=== PATIENT | male | born 2000 | race Asian ===

== ENCOUNTER 2023-11-14 13:10 | Emergency (ER) | payer OTHER, SELFPAY ==
[2023-11-14 13:16] VITALS: BP 109/74
[2023-11-14 13:22] LABS: Glucose - Point of Care 84 mg/dl (70-99)
[2023-11-14 13:27] VITALS: BMI 18.1
[2023-11-14 13:52] LABS: % Basophils 0.9 % (0-2); % Eosinophils 0.9 % (0-6); % Immature Granulocytes 0.5 % (0-0.5); % Lymphocytes 44.6 % (20.5-51.1); % Monocytes 8.1 % (1.7-9.3); Absolute Basophils 0.1 10^3/uL (0-0.2); Absolute Eosinophils 0.1 10^3/uL (0-0.7); Absolute Monocytes 0.5 10^3/uL (0.1-0.6); Hematocrit 39.8 % (39.0-52.0); Hemoglobin 14.3 g/dL (13.0-18.0); Mean Corp Hgb Conc. 35.9 g/dL (33.0-37.0); Mean Corpuscular Hgb 31.9 pg (27.0-31.0); Mean Corpuscular Volume 88.8 fL (80.0-94.0); Mean Platelet Volume 9.6 fL (7.4-10.4); Nucleated Red Blood Cells % 0 % (-); Platelet Count 209 10^3/uL (130-400); Red Blood Cell Count 4.48 10^6/uL (4.70-6.10); Red Cell Dist. Width 11.7 % (11.5-14.5); White Blood Cell Count 6.6 10^3/uL (4.8-10.8)
[2023-11-14 14:08] LABS: Blood Urea Nitrogen 16 mg/dl (9-20); Calcium 9.5 mg/dl (8.4-10.2); Carbon Dioxide 20 mmol/L (22-30); Chloride 103 mmol/L (98-107); Estimated Creatinine Clearance > 125 ml/min; Glucose 124 mg/dl (70-99); Sodium 135 mmol/L (135-145); eGFR > 60.00
[2023-11-14 14:33] LABS: Erythrocyte Sed Rate 2 mm/hour (0-20)
[2023-11-14 14:39] VITALS: BP 106/66
--- NOTE | 2023-11-14 15:15 | EDRN ---
Pt going to [facility] at this time.
[2023-11-14 15:43] VITALS: BP 107/66
[2023-11-14 15:47] LABS: Prolactin 116.2 ng/ml (3.7-17.9)
--- NOTE | 2023-11-14 15:47 | EDRN ---
Pt took off IV covering/protective so arm wrapped in kerlix to protect pt from pulling out his IV.
--- NOTE | 2023-11-14 16:00 | EDRN ---
Lien VENTURA was in to update pt's parents.
[2023-11-14 16:14] LABS: ALT (SGPT) 18 U/L (0-50); AST (SGOT) 26 U/L (17-59); Albumin 4.9 g/dl (3.5-5.0); Alkaline Phosphatase 66 U/L (38-126); Blood Urea Nitrogen 17 mg/dl (9-20); Calcium 9.5 mg/dl (8.4-10.2); Carbon Dioxide 24 mmol/L (22-30); Chloride 104 mmol/L (98-107); Estimated Creatinine Clearance > 125 ml/min; Glucose 109 mg/dl (70-99); Sodium 134 mmol/L (135-145); Total Bilirubin 0.6 mg/dl (0.2-1.3); Total Protein 7.4 g/dl (6.3-8.2); eGFR > 60.00
[2023-11-14 16:21] LABS: Vitamin B12 685 pg/ml (239-931)
--- NOTE | 2023-11-14 16:54 | ED.GENMED ---
History of Present Illness
General
Chief Complaint: Seizure
Source: family
Exam Limitations: non verbal-adult
Time Seen by Provider: 11/14/23 13:27
Nursing documentation reviewed up to this point in time: agreed with
Travel History
Have you had any contact with someone who has COVID-19?: No
Do you have any symptoms of coronavirus? Fever > 100 degrees, chills, cough, shortness of breath, sore throat, loss of taste or smell, muscle aches, or headache?: No
History of Present Illness
History of Present Illness:
pt is a 23 y/o M with h/o dev delay/autism, nonverbal
here via EMS
after pt was witnessed to have event toay where he had his arms bent and was shaking and saying 'oh oh oh' and foaming at the mouth. Following that he became diaphoretic and felt cool to the touch. Patient took his temperature with a temporal
scanner which was 36.5. Patient probably shook slightly for about 1 minute before becoming sleepy. He was postictal appearance to EMS, normal blood sugar, was mildly tachycardic in the 1 teens until arrival. He is now awake and alert and at
baseline. He is nonverbal, will follow some commands per parents sometimes
This could be his first ever seizure episode. He has never passed out. He has no known congenital anomalies/structural abnormalities in his brain. Patient did vomit when he arrived here but has not vomited since.
Past History
Past History
ED Past Medical History: Other ( developmental delay, autism)
Review of Systems
Review of Systems
Allergies reviewed?: Yes
Unable to obtain full review of systems at this time due to: non-verbal
All Other Systems: Not applicable
Phy Exam
Physical Exam
Physical Exam:
GENERAL: nontoxic, moving around in the stretcher, not communicative
moving all extremities
HEENT: no signs of head truama elmer supple, nnot opening mouth for me, but i was able to get a quick look and i did not see a tongue laceration
RESP: Unlabored respirations, no accessory muscle use. Breath sounds clear bilaterally
CARDIOVASCULAR: Regular rate, no murmurs, equal pulses
GASTROINTESTINAL: Soft, nontender, nondistended, normal bowel sounds
SKIN: No rash, no petechiae, no unusual bruising
NEURO: moving all extremities; not following commands for me but this is baseline per familry
Course
Orders/Labs/Results
Orders:
Orders
11/14/23 13:31
Cardiac Monitoring- Treatment ONCE
IV Insert/Care/Rem.- Treatment PRN
11/14/23 13:37
Basic Metabolic Panel Urgent
Complete Blood Count/With Diff Urgent
Erythrocyte Sed Rate Urgent
Comment: ADD ON
Prolactin Urgent
Vitamin B12 Urgent
Comment: ADD ON
11/14/23 13:55
Electrocardiogram (*1) Urgent
Reason for Study: Other
Other Reason for Exam: ams
EKG- Treatment ONCE
11/14/23 15:37
Comprehensive Metabolic Panel Urgent
11/14/23 16:56
Levetiracetam [Keppra] 500 mg PO NOW STA
Levetiracetam [Keppra] 500 mg PO NOW STA
Abnormal Lab Results
11/14/23 11/14/23
13:37 15:37
RBC 4.48 L 10^6/uL
(4.70-6.10)
MCH 31.9 H pg
(27.0-31.0)
Sodium 134 L mmol/L
(135-145)
Carbon Dioxide 20 L mmol/L
(22-30)
Creatinine 0.6 L mg/dL 0.6 L mg/dL
(0.7-1.3) (0.7-1.3)
Glucose 124 H mg/dl 109 H mg/dl
(70-99) (70-99)
Prolactin 116.2 H ng/ml
(3.7-17.9)
11/14/23 13:37
11/14/23 15:37
Vital Signs
Initial and Last Documented VS:
Initial Vital Signs
Temp Pulse Resp BP Pulse Ox
97.6 F 97 18 109/74 97
11/14/23 13:16 11/14/23 13:16 11/14/23 13:16 11/14/23 13:16 11/14/23 13:16
Last Documented Vital Signs
Temp Pulse Resp BP Pulse Ox
97.6 F 90 24 107/66 96
11/14/23 13:16 11/14/23 17:00 11/14/23 17:00 11/14/23 15:43 11/14/23 17:00
MDM/Problems Addressed
Differential Diagnosis Includes:
seizure, syncope
MDM/Problems Addressed:
23-year-old developmentally delay/autism and nonverbal witnessed to have an event that look like a seizure by parents, lasting about a minute, patient did seem postictal for paramedics but was not incontinent and had no obvious tongue laceration,
here was initially a little bit somnolent but has returned to his baseline fairly quickly. He did vomit on arrival but has not had any vomiting since. He had no provoked cause for the seizure,. His blood work was reassuring, discussed CT imaging
likely not to be high yield and mom declined. I discussed this case with neurology attending Dr. Xiong who recommended a prolactin level and if elevated could suggest that the patient did have a seizure. This was elevated. His sed rate was
normal. He recommended 500 of Keppra twice daily and outpatient MRI/neurology follow-up. Mom was told about this information. We did use the language line for some of the encounter however she does speak Mexican and she is medically inclined,
works for [employer] and seems to have a good understanding about what to do for follow-up. Return precautions given
*Critical Care Note
Total Time (30-74mins, 75-104mins- exclusive of procedures): Not Applicable
ED Attending Note
-
Portions of this chart may have been created with voice recognition software.� Occasional wrong word or��sound alike� substitutions may have occurred due to the inherent limitations of voice recognition software.
Discharge Plan
Departure
Patient Disposition: Home (Routine Discharge)
Date of Disposition: 11/14/23
Time of Disposition: 17:00
Patient with high blood pressure during this ER visit?: No
Covid-19: Not Applicable
Discharge Problem:
Observed seizure-like activity
Instructions: Seizures, Adult (DC)
Prescriptions:
New
levetiracetam [Keppra] 500 mg tablet
500 mg PO BID 14 Days Qty: 28 0RF
Referrals:
Larry Xiong MD [Active] - Follow up in 1 week (neuro)
Malini Mustafa MD [Family Provider] -
Activity Restrictions/Additional Instructions:
Chidi sounds to have had a seizure today. He is going to need an outpatient MRI and neurology follow-up. You should call on Thursday and try to get an appointment. Tell them that you are in the emergency department. In the meantime he should see
his family doctor. They can continue treatment and tried to arrange for follow-up. Watch for any repeated seizure activity and bring him back immediately or call 911. For now given Keppra 500 mg twice a day.
Return for any seizure, worsening vomiting, confusion, change in mental status, or any concerns
Interventions
Interventions:
*Risk Screen - Suicide Last Done: 11/14/23 13:28
*General Assessment Last Done: 11/14/23 13:28
*Neglect/Abuse Screening Last Done: 11/14/23 13:28
ED- Fall Risk Assessment Last Done: 11/14/23 13:28
*ED COVID-19 Vaccine History Last Done: 11/14/23 13:28
*Nursing Disposition Last Done: 11/14/23 17:30
ED- Cardiac Assessment Last Done: 11/14/23 13:35
ED- Neurological Assessment Last Done: 11/14/23 13:35
ED- Pulmonary Assessment Last Done: 11/14/23 13:45
Discharge Date and Time
Discharge Date/Time: 11/14/23 17:30
Print Language: OCCIT[place]
[2023-11-14] MEDS: KEPPRA 500 MG PO (17:05)
--- NOTE | 2023-11-14 17:10 | EDRN ---
Pt took pill whole in apple sauce at this time.
== END 2023-11-14 17:30 | disposition home or self-care (01) ==
LOC: EMR 13:10
PROVIDERS: Physician Assistant; EMERGENCY PHYSICIAN Emergency Medicine; FAMILY PHYSICIAN Internal Medicine
DX: R56.9 Unspecified convulsions (principal); R11.10 Vomiting, unspecified; R00.0 Tachycardia, unspecified; R25.1 Tremor, unspecified; F84.0 Autistic disorder
CPT/HCPCS: 99284; 80048; 80053; 82607; 82962; 84146; 85025; 85652; 93005

== ENCOUNTER 2024-02-19 08:53 | Emergency (ER) | payer OTHER, SELFPAY ==
[2024-02-19 08:58] VITALS: BP 103/63
--- NOTE | 2024-02-19 09:19 | ED.SKININJ ---
HPI-Injury
General
Chief Complaint: Skin Problem
Source: family (father) and home health aide caregiver
Exam Limitations: non verbal-adult
Time Seen by Provider: 02/19/24 09:04
Nursing documentation reviewed up to this point in time: agreed with
History of Present Illness-Injury
Initial Injury comments:
23 yo developmentally delayed male with numerous scars from picking on right forearm and hand, one on left hand dorsum, superficial vertical scratch kerr on both lower legs, dad is concerned for infection as one of the scabs fell off today and the
underlying skin is red. Denies fever, vomiting. Has appointment with the Clerical Support Specialist next month.
Past History
Past History
ED Past Medical History: Other ( developmental delay, autism)
ED Past Surgical History: Other (hernia)
Social History
Tobacco: Non-smoker
Alcohol: None
Drug: None
Personal: Single
Living: with family
Employment: Disabled
Review of Systems
Review of Systems
Allergies reviewed?: Yes
All Other Systems: ROS reviewed and negative except as documented in HPI and ROS
Constitutional: Denies fever
Respiratory: Denies cough
ABD/GI: Denies vomiting or diarrhea
Skin: Reports other (numerous scars mainly on right forearm, few on hands, scratch kerr both lower legs)
Neurological: Reports other (Non verbal)
Phy Exam
Physical Exam
Physical Exam:
GENERAL: No acute distress. A&Ox3.
CONSTITUTIONAL: Afebrile.
EYES: clear, conjunctivae normal
RESPIRATORY: Regular respirations, nonlabored, lungs clear.
CARDIOVASCULAR: Regular rate and rhythm, no murmurs, no rubs.
GI: Soft, nontender
MUSCULOSKELETAL: Moves with ease. Well perfused.
SKIN: Warm, dry, R forearm and R hand dorsum with numerous dark pink raised dry scars. Few similar areas L hand dorsum. Both lower legs w superficial vertical scratch kerr. All surrounding skin is normal. No drainage. No lymphangitis, no swelling.
PSYCH: Developmentally delayed, non verbal.
NEUROLOGIC: Awake, alert. No focal neurological deficits
Course
Vital Signs
Initial and Last Documented VS:
Initial Vital Signs
Temp Pulse Resp BP Pulse Ox
98.3 F 70 18 103/63 100
02/19/24 08:58 02/19/24 08:58 02/19/24 08:58 02/19/24 08:58 02/19/24 08:58
Last Documented Vital Signs
Temp Pulse Resp BP Pulse Ox
98.3 F 70 18 103/63 100
02/19/24 08:58 02/19/24 08:58 02/19/24 08:58 02/19/24 08:58 02/19/24 08:58
MDM/Problems Addressed
Differential Diagnosis Includes:
Picking scars, scratch kerr, cellulitis
MDM/Problems Addressed:
23 yo developmentally delayed male with numerous scars from picking on right forearm and hand, one on left hand dorsum, superficial vertical scratch kerr on both lower legs, dad is concerned for infection as one of the scabs fell off today and the
underlying skin is red. Denies fever, vomiting. Has appointment with the Clerical Support Specialist next month.
Afebrile, NAD
Exam of right forearm and and dorsum of hand and left hand dorsum consistent with fibrotic scars, no sign of infection/cellulitis. Lower legs with superficial scratches, no sign of infection.
Nothing more to do at this point. 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
Dad has made appointment with Dermatology for next month.
*Critical Care Note
Total Time (30-74mins, 75-104mins- exclusive of procedures): Not Applicable
ED Attending Note
-
Portions of this chart may have been created with voice recognition software.� Occasional wrong word or��sound alike� substitutions may have occurred due to the inherent limitations of voice recognition software.
Discharge Plan
Departure
Patient Disposition: Home (Routine Discharge)
Date of Disposition: 02/19/24
Time of Disposition: 09:18
Patient with high blood pressure during this ER visit?: No
Condition: Good
Discharge Problem:
Scar conditions/skin fibrosis
Instructions: Scars and How to Care for Them
Prescriptions:
No Action
levetiracetam [Keppra] 500 mg tablet
500 mg PO BID 14 Days Qty: 28 0RF
Referrals:
Your, Clerical Support Specialist [Other] - Keep scheduled appt
Activity Restrictions/Additional Instructions:
You may try Zyrtec or Claritin to see if it helps with the itching and let the Clerical Support Specialist know whether or not it helped.
The lesions are not infected, they are simply scarred dark pink.
Keep your appointment with the Clerical Support Specialist.
Covering the arm may help.
Interventions
Interventions:
*Risk Screen - Suicide Last Done: 02/19/24 08:58
*General Assessment Last Done: 02/19/24 08:58
*Neglect/Abuse Screening Last Done: 02/19/24 08:58
*Nursing Disposition Last Done: 02/19/24 09:32
ED-Skin Assessment Last Done: 02/19/24 09:05
Discharge Date and Time
Discharge Date/Time: 02/19/24 09:33
Print Language: CITIZEN OF [place]
== END 2024-02-19 09:33 | disposition home or self-care (01) ==
LOC: EMR 08:53
PROVIDERS: EMERGENCY PHYSICIAN Student in an Organized Health Care Education/Training Program; FAMILY PHYSICIAN Internal Medicine
DX: L90.5 Scar conditions and fibrosis of skin (principal); F84.0 Autistic disorder
CPT/HCPCS: 99282

== ENCOUNTER → 2024-03-04 07:35 | Outpatient (REF) | payer OTHER, SELFPAY | LOC: EEG 07:35 | PROVIDERS: ATTENDING PHYSICIAN Specialist; FAMILY PHYSICIAN Internal Medicine | DX: R56.9 Unspecified convulsions (principal) | CPT/HCPCS: 95816 ==

== ENCOUNTER → 2024-03-23 15:44 | Outpatient (REF) | payer OTHER, SELFPAY | LOC: RAD 15:44 | PROVIDERS: ATTENDING PHYSICIAN Specialist | DX: R56.9 Unspecified convulsions (principal) | CPT/HCPCS: 70450 ==

== ENCOUNTER 2024-05-31 12:32 | Emergency (ER) | payer OTHER, SELFPAY ==
[2024-05-31 12:36] VITALS: BP 88/77
[2024-05-31 13:00] VITALS: BP 89/61
--- NOTE | 2024-05-31 13:17 | ED.GENMED ---
History of Present Illness
<FARIHA Alberts Last Filed: 05/31/24 18:37>
General
Chief Complaint: Seizure
Source: patient
Exam Limitations: none
Time Seen by Provider: 05/31/24 13:14
Nursing documentation reviewed up to this point in time: agreed with
History of Present Illness
History of Present Illness:
23-year-old male with past medical history of developmental delays, autism, seizure disorder presents emergency department today with concerns of a seizure. School staff reports that patient had an episode where he closed his eyes, his eyes
twitched, he became tense, started to slump over. He started to fall towards the ground but his teacher caught him before he hit his head. He did not injure his neck. Patient was given 5 mg of Versed intranasally by school nursing staff. He is
nonverbal and as such his history is limited. Mom does note that he sees Dr. Maria Elena Rees as his neurologist and takes keppra 500 po BID. his first seizure was a few months ago. Mom denies any infectious symptoms recently such as fevers or chills,
cough. Patient does have a iPad to communicate, however when asked if he has any headache, burning with urination, or any other symptoms, he replies on his ipad 'happy.' Mom does note that patient was up late and did not get much sleep the past 2
nights due to playing video games.
Past History
<FARIHA Alberts Last Filed: 05/31/24 18:37>
Past History
ED Past Medical History: Other ( developmental delay, autism)
ED Past Surgical History: Other (hernia)
Social History
Tobacco: Non-smoker
Alcohol: None
Drug: None
Personal: Single
Living: with family
Employment: Disabled
Review of Systems
<FARIHA Alberts Last Filed: 05/31/24 18:37>
Review of Systems
All Other Systems: ROS reviewed and negative except as documented in HPI and ROS
Phy Exam
<Marjorie Foster PA-C - Last Filed: 05/31/24 18:37>
Physical Exam
Physical Exam:
General: Patient is well appearing and in no acute distress; non-toxic
Skin: Warm and dry, no rashes or lesions
Head: Normocephalic, atraumatic
Eyes: Sclera non-icteric. EOMs intact. PERRLA.
Mouth: No intraoral lesions, no tongue laceration
Cardiac: Regular rate and rhythm, no murmurs
Pulm: Normal respiratory effort, no wheezes, rales, rhonchi
Musculoskeletal: No apparent tenderness to palpation of the cervical spine
Neuro: CN II-XII intact, no focal neurologic deficits.
Psychiatric: Appropriate mood and affect.
Course
<Marjorie Foster PA-C - Last Filed: 05/31/24 18:37>
Orders/Labs/Results
Orders:
Orders
05/31/24 13:31
Electrocardiogram (*1) Urgent
Reason for Study: Vertigo / Dizzy
EKG- Treatment ONCE
05/31/24 13:38
Complete Blood Count/With Diff Urgent
Comprehensive Metabolic Panel Urgent
Keppra (Levetiracetam) [S] Urgent
CR Chest - 2 Views Urgent
Comment:
Reason For Exam: cough
05/31/24 13:58
Urinalysis Reflex To Culture Urgent
Date Specimen was Collected: 05/31/24
Time Specimen was Collected: 13:57
Abnormal Lab Results
05/31/24
13:38
RBC 4.33 L 10^6/uL
(4.70-6.10)
Creatinine 0.6 L mg/dL
(0.7-1.3)
Glucose 130 H mg/dl
(70-99)
05/31/24 13:38
05/31/24 13:38
Vital Signs
Initial and Last Documented VS:
Initial Vital Signs
Pulse Resp Pulse Ox
76 23 98
05/31/24 12:35 05/31/24 12:35 05/31/24 12:35
Last Documented Vital Signs
Temp Pulse Resp BP Pulse Ox
98 F 93 18 98/71 97
05/31/24 12:36 05/31/24 15:45 05/31/24 14:00 05/31/24 14:20 05/31/24 12:36
<Mel Cavazos MD - Last Filed: 05/31/24 14:07>
Orders/Labs/Results
Orders:
Orders
05/31/24 13:31
Electrocardiogram (*1) Urgent
Reason for Study: Vertigo / Dizzy
EKG- Treatment ONCE
05/31/24 13:38
Complete Blood Count/With Diff Urgent
Comprehensive Metabolic Panel Urgent
Keppra (Levetiracetam) [S] Urgent
CR Chest - 2 Views Urgent
Comment:
Reason For Exam: cough
05/31/24 13:58
Urinalysis Reflex To Culture Urgent
Date Specimen was Collected: 05/31/24
Time Specimen was Collected: 13:57
Abnormal Lab Results
05/31/24
13:38
RBC 4.33 L 10^6/uL
(4.70-6.10)
Creatinine 0.6 L mg/dL
(0.7-1.3)
Glucose 130 H mg/dl
(70-99)
05/31/24 13:38
05/31/24 13:38
Vital Signs
Initial and Last Documented VS:
Initial Vital Signs
Pulse Resp Pulse Ox
76 23 98
05/31/24 12:35 05/31/24 12:35 05/31/24 12:35
Last Documented Vital Signs
Temp Pulse Resp BP Pulse Ox
98 F 93 18 98/71 97
05/31/24 12:36 05/31/24 15:45 05/31/24 14:00 05/31/24 14:20 05/31/24 12:36
<Marjorie Foster PA-C - Last Filed: 05/31/24 18:37>
MDM/Problems Addressed
Differential Diagnosis Includes:
ddx include breakthrough seizure, cardiogenic syncope, vasovagal syncope
MDM/Problems Addressed:
23-year-old male with past medical history of developmental delays, autism, seizure disorder presents emergency department today with concerns of a seizure. School staff reports that patient had an episode where he closed his eyes, his eyes
twitched, he became tense, started to slump over. History consistent with breakthrough seizure. On physical exam, patient is well appearing, he has no signs of head or neck trauma. He is in no acute distress. He is no evidence of tongue
lacerations. His CBC and CMP are unremarkable. His urinalysis was negative for infection, his chest x-ray showed no evidence of pneumonia. Did send off for Keppra level, pending. Was able to get into contact with Dr. Maria Elena Rees from [place] in
[facility] who recommends increasing patient's dose of Keppra 750 mg twice a day. Discussed this with patient's family. They are okay with plan. Dr. Rees did say that she will get patient in to be seen sooner than later for follow-up. They will
call patient to schedule appointment. Patient stable for discharge.
Chronic conditions affecting care:
Developmental delay, seizure disorder
<Marjorie Foster PA-C - Last Filed: 05/31/24 18:37>
*Pulse Oximetry
Patient hypoxic: no
*Critical Care Note
Total Time (30-74mins, 75-104mins- exclusive of procedures): Not Applicable
Data Reviewed
Review of Other/Old Records Reveals: Records (Reviewed ER physician documentation from 02/19/2024, patient seen for scars from skin picking, reviewed ER physician documentation from 11/14/2023, patient seen for seizure-like activity) and Other (Did
speak to mom who reports that patient has had normal EEG and CTscan of the head as part of his seizure work)
<Marjorie Foster PA-C - Last Filed: 05/31/24 18:37>
Patient Management
Escalation/DeEscalation of care consider admission/obs:
Admit not indicated, patient stable for discharge, EKG demonstrates nonspecific T wave abnormality however unchanged compared to previous EKG.
ED Attending Note
<Marjorie Foster PA-C - Last Filed: 05/31/24 18:37>
-
Portions of this chart may have been created with voice recognition software.� Occasional wrong word or��sound alike� substitutions may have occurred due to the inherent limitations of voice recognition software.
<Mel Cavazos MD - Last Filed: 05/31/24 14:07>
ED Attending Note
Patient seen and examined by attending physician: Yes
I performed the substantive portion of visit, reviewed & personally made and approve the management plan that is documented in note by myself or GAVI.: Yes
ED Attending Note:
I have seen and evaluated the patient with a [id number] encounter. I have spoken to the [PA] and involved in the medical history, the physical exam, medical decision making.
Evaluation and management service: agree unless noted differently below.
Results interpretation: agree unless noted differently below.
Patient is a 23-year-old man with history of autism and seizures presenting to the emergency department with a seizure. Patient's mother is at bedside provides all the history. He was diagnosed with seizures earlier this year and is on Keppra 500
mg twice daily. He has had a total of 4 seizures including the one today. Normally they are generalized tonic-clonic. Today he was at school when he started blinking abnormally and then had tonic seizure that lasted a few minutes. He was given 5
mg Versed intranasally. This did stop the seizure. He was slightly confused afterwards. Patient's mother is at bedside who states that he is back to his normal. She does note that for the past few days has only been sleeping 3 to 4 hours and has
been staying up all night playing games on his computer. He is also been having decreased p.o. for the past few days. His seizures did notice that he was less active today in school. However this morning he did wake up with his normal activity
level and mother did not notice anything abnormal. He is compliant with his medications. No fevers or chills. No URI symptoms. No recent trauma. No nausea vomiting or diarrhea. On exam patient is resting comfortably. He is nonverbal but
happily playing with the remote. His abdomen is benign. No obvious rashes. He is moving all extremities.
Differential consists of breakthrough seizure versus metabolic derangement versus infection though less likely. The stress certainly could be secondary to his sleep changes. Will check blood work urine EKG. Will discuss with his neurologist to
see if we should make any adjustments to his Keppra. Will also check Keppra level. Anticipate discharge if patient continues to remain at his baseline without any further evidence of seizures.
Discharge Plan
Departure
Patient Disposition: Home (Routine Discharge)
Date of Disposition: 05/31/24
Time of Disposition: 15:58
Patient with high blood pressure during this ER visit?: Yes
Condition: Good
Discharge Problem:
Seizure
Instructions: Seizures, Adult (DC), BLOOD PRESSURE
Prescriptions:
New
levetiracetam [Keppra] 750 mg tablet
750 mg PO BID Qty: 30 0RF
No Action
levetiracetam [Keppra] 500 mg tablet
500 mg PO BID 14 Days Qty: 28 0RF
Referrals:
Malini Mustafa MD [Family Provider] -
Activity Restrictions/Additional Instructions:
You should stop taking the 500 mg of Keppra. Please start taking 750 mg by mouth twice daily. You should receive a call from Dr. Rees's office to schedule an appointment within the next few weeks.
Please return to the emergency department should you develop persistent seizure-like activity, fainting spells, headaches, intractable nausea or vomiting, fevers or chills, or any other signs or symptoms worrisome to you.
Interventions
Interventions:
*Risk Screen - Suicide Last Done: 05/31/24 12:36
*General Assessment Last Done: 05/31/24 12:36
*Neglect/Abuse Screening Last Done: 05/31/24 12:36
ED- Fall Risk Assessment Last Done: 05/31/24 13:12
*ED COVID-19 Vaccine History Last Done: 05/31/24 12:36
*Nursing Disposition Last Done: 05/31/24 16:10
ED- Cardiac Assessment Last Done: 05/31/24 12:40
ED- Neurological Assessment Last Done: 05/31/24 13:27
ED- Pulmonary Assessment Last Done: 05/31/24 13:08
Discharge Date and Time
Discharge Date/Time: 05/31/24 16:10
Print Language: JORDAN[place]
[2024-05-31 14:00] LABS: % Basophils 0.6 % (0-2); % Eosinophils 0.8 % (0-6); % Immature Granulocytes 0.2 % (0-0.5); % Lymphocytes 34.6 % (20.5-51.1); % Monocytes 6.6 % (1.7-9.3); % Neutrophils 57.2 % (42.2-75.2); Absolute Lymphocytes 1.8 10^3/uL (1.2-3.4); Absolute Monocytes 0.3 10^3/uL (0.1-0.6); Hematocrit 40.2 % (39.0-52.0); Hemoglobin 13.4 g/dL (13.0-18.0); Mean Corp Hgb Conc. 33.3 g/dL (33.0-37.0); Mean Corpuscular Hgb 30.9 pg (27.0-31.0); Mean Corpuscular Volume 92.8 fL (80.0-94.0); Mean Platelet Volume 9.6 fL (7.4-10.4); Nucleated Red Blood Cells % 0 % (-); Platelet Count 214 10^3/uL (130-400); Red Blood Cell Count 4.33 10^6/uL (4.70-6.10); Red Cell Dist. Width 11.8 % (11.5-14.5); White Blood Cell Count 5.2 10^3/uL (4.8-10.8)
[2024-05-31 14:11] LABS: ALT (SGPT) 22 U/L (0-50); AST (SGOT) 25 U/L (17-59); Albumin 4.6 g/dl (3.5-5.0); Alkaline Phosphatase 39 U/L (38-126); Blood Urea Nitrogen 19 mg/dl (9-20); Calcium 9.3 mg/dl (8.4-10.2); Carbon Dioxide 26 mmol/L (22-30); Chloride 102 mmol/L (98-107); Glucose 130 mg/dl (70-99); Potassium 4.3 mmol/L (3.5-5.1); Sodium 140 mmol/L (135-145); Total Bilirubin 0.6 mg/dl (0.2-1.3); Total Protein 6.7 g/dl (6.3-8.2); eGFR > 60.00
[2024-05-31 14:17] LABS: Urine Albumin Negative (Neg - Trace); Urine Bilirubin Negative (Negative); Urine Character Clear (Clear); Urine Color Yellow; Urine Glucose Negative (Negative); Urine Ketone Negative (Negative); Urine Leukocyte Negative (Negative); Urine Nitrite Negative (Negative); Urine Occult Blood Negative (Negative); Urine Urobilinogen Negative (Neg - 1+)
[2024-05-31 14:20] VITALS: BP 98/71
== END 2024-05-31 16:10 | disposition home or self-care (01) ==
LOC: EMR 12:32
PROVIDERS: Physician Assistant; EMERGENCY PHYSICIAN Student in an Organized Health Care Education/Training Program; FAMILY PHYSICIAN Internal Medicine
DX: G40.909 Epilepsy, unspecified, not intractable, without status epilepticus (principal); F84.0 Autistic disorder; R62.50 Unspecified lack of expected normal physiological development in childhood
CPT/HCPCS: 99283; 71046; 80053; 80177; 81003; 85025; 93005